=== PATIENT | female | born 1955 | race Hispanic/Latino ===

== ENCOUNTER → 2024-10-27 | Outpatient (CLI) | payer MEDICARE ==
--- NOTE | 2024-10-27 18:03 | HMCSR ---
APPROVED REPORT EXAM: Two-dimensional and M-mode echocardiogram with Doppler and color Doppler. INDICATION ICD: Primary pulmonary hypertension I27.0 2D Dimensions RVDd3.5 cmLVEF(%)72.8 (>50%)LVED Vol(simp.)99.3 mL IVSd1.3 (0.7-1.1cm)FS(%)42 %LVES Vol(simp.)30.7 mL LVDd4.1 (3.8-5.6cm)LA (2D)4.1 (1.6-4.0cm)LVEF(%, simp.)69 % PWd1.0 (0.7-1.1cm)Ao Root(2D)2.9 (2.0-3.7cm)LA ESV INDEX (4CH)28.00 mL/m2 IVSs1.5 cmLVOT diam2.0 (1.8-2.4cm)LA ESV INDEX (2CH)27.40 mL/m2 LVDs2.4 (2.5-4.0cm)LA ESV INDEX (BP)30.80 mL/m2 PWs1.8 cm M-Mode Dimensions LA (MM)3.9 (1.6-4.0cm) Ao Root(MM)2.5 (2.0-3.7cm) Aortic Valve AoV VTI0.5 mAo Mean GR8.0 mmHgLVOT VTI0.35 m CORAL (VMAX)2.3 cm2AVA (VTI) 2.3 cm2 Mitral Valve MV E Vmax86.3 cm/sDECEL Syyq256 ms MV A Vmax99.4 cm/sP 1/2 T71 ms E/A ratio0.9MVA (PHT)3.1 cm2 TDI E/E' Hpvebn03.3E/E' Klqadgb85.3 Medial E' Peak V6.50 cm/sLateral E' Peak V7.00 cm/s Tricuspid Valve TR Vmax2.5 m/s TR Peak GR24.4 mmHg Left Ventricle The left ventricle is normal size. Mild concentric left ventricular hypertrophy. LVEF is 65-70%. The left ventricular diastolic function is normal. Right Ventricle The right ventricle is normal size. The right ventricular systolic function is normal. Atria The left atrium size is normal. The right atrium size is normal. Aortic Valve The aortic valve is normal in structure. No aortic regurgitation is present. There is no aortic valvu lar stenosis. Mitral Valve The mitral valve is normal in structure. There is no evidence of significant mitral regurgitation. Th ere is no mitral valve stenosis. Tricuspid Valve The tricuspid valve is normal in structure. There is trace tricuspid valve regurgitation noted. Pulmonic Valve The pulmonary valve is normal in structure. There is no pulmonic valvular regurgitation. Great Vessels The aortic root is normal in size. The IVC is normal in size and collapses >50% with inspiration. Pericardium There is no pericardial effusion. Other Information Quality : GoodRhythm : NSR Conclusion LVEF is 65-70%. Mild concentric left ventricular hypertrophy.
== END | disposition home or self-care (01) ==
LOC: RAH 14:05
PROVIDERS: ATTEND Family Medicine
DX: I51.7 Cardiomegaly (principal); I27.0 Primary pulmonary hypertension
CPT/HCPCS: 93306